=== PATIENT | male | born 1970 | race Two or more races ===

== ENCOUNTER 2024-04-14 00:37 | Inpatient (IN) | payer OTHER ==
[~2024-04-14] VITALS: Ht 172.7 cm; Wt 93.3 kg
[2024-04-14] VITALS (7 sets, daily range): BP systolic 99–111; BP diastolic 48–62; PULSE 59–142; RESP 14–19; TEMP 98–99; O2SAT 93–96
[2024-04-14 01:13] LABS: Basophils # (auto) 0 10 ^3/uL (0-0.2); Basophils % (auto) 0.6 % (0.0-2.0); Eosinophils # (auto) 0 10 ^3/uL (0-0.8); Eosinophils % (auto) 0.8 % (0.0-7.0); Hematocrit 41.9 % (41.0-53.0); Hemoglobin 14.2 g/dL (13.5-17.5); Lymphocytes # (auto) 0.7 10 ^3/uL (0.4-5.4); Lymphocytes % (auto) 13.7 % (10.0-50.0); Mean Corpuscular Hemoglobin 31.2 pg (28.0-32.0); Mean Corpuscular Hgb Conc. 33.8 g/dL (32.0-36.0); Mean Corpuscular Volume 92.1 fL (80.0-100.0); Monocytes # (auto) 0.1 10 ^3/uL (0-1.3); Monocytes % (auto) 1.7 % (0.0-12.0); Neutrophils # (auto) 4.4 10 ^3/uL (1.6-8.6); Neutrophils % (auto) 83.2 % (37.0-80.0); Nucleated Red Blood Cells % 0.1 %; Platelet Count (auto) 371 10^3/uL (140-450); Red Blood Cells 4.55 10^6/uL (4.5-5.90); White Blood Cell 5.2 10^3/uL (4.4-10.8)
--- NOTE | 2024-04-14 01:16 | ED.PDOC ---
SOB-HPI HPI Comments 53-year-old male who came to ER via EMS for shortness of breath. Patient does have history of diabetes and asthma. States 45 minutes prior to arrival patient developed sudden onset shortness of breath and wheezing. Patient was given albuterol inhalers but offered no relief. Then having fever, chills nausea and vomiting. Temperature on scene was 101.3 F and was saturating at 98% on room air. Chief Complaint: Shortness of Breath Time Seen by MD: 01:15 Reviewed notes: Nurses Notes Information Source: Patient, Emergency Med Personnel Mode of Arrival: EMS Severity: Moderate Timing: Hours Duration: Intermittent Context: At Rest, With Light Exertion History of: Asthma Prehospital treatment: Breathing Tx, Oxygen Modifying Factors: Nothing Associated Signs and Symptoms: Wheeze, Cough Quality: Tightness Location: Chest (R), Chest (L) If cough with SOB: Non-Productive Past Medical History PAST MEDICAL HISTORY: Asthma, DM, High Lipids Surgical History: Denies all surgeries Family History Family History: Reviewed,noncontributory to illness Social History Smoker: Non-Smoker Alcohol: Denies ETOH Use Drugs: Denies Drug Use Lives In: Home Constitutional: reports: chills, fever Respiratory: reports: cough, SOB at rest, shortness of breath, wheezing Gastrointestinal: reports: nausea Physical Exam General Appearance: No Apparent Distress, Normal HEENT: Normal ENT Inspection, Pharynx Normal, TMs Normal Neck: Full Range of Motion, Non-Tender, Normal, Normal Inspection Respiratory: Chest Non-Tender, No Accessory Muscle Use, Wheezing Cardiovascular: No Edema, No JVD, No Murmur, No Gallop, Normal Peripheral Pulses, Regular Rate/Rhythm Breast Exam: Deferred Gastrointestinal: No Organomegaly, Non Tender, No Pulsatile Mass, Normal Bowel Sounds, Soft Genitalia: Deferred Pelvic: Deferred Rectal: Deferred Extremities: No calf tenderness, Normal capillary refill, Normal inspection, Normal range of motion, Non-tender, No pedal edema Musculoskeletal : Apperance: Normal Neurologic: Alert, antique finisher II-XII nml as Tested, No Motor Deficits, Normal Affect, Normal Mood, No Sensory Deficits Cerebellar Function: Normal Reflexes: Normal Skin: Dry, Normal Color, Warm Lymphatic: No Adenopathy Was a procedure done? Was a procedure done?: No Differential Dx Differential Diagnosis: Asthma, Bronchitis, Pneumonia, Respiratory Distress, URI X-Ray, Labs, Meds, VS Vital Signs Date Time Temp Pulse Resp B/P (MAP) Pulse Ox O2 Delivery O2 Flow Rate FiO2 04/14/24 04:52 90 26 83/47 (59) 90 04/14/24 04:35 94 25 88/49 (62) 92 04/14/24 04:00 101 19 92/45 (61) 92 04/14/24 03:00 126 34 97/48 (64) 89 04/14/24 02:43 101.2 04/14/24 01:29 140 04/14/24 01:28 102.8 142 15 92/52 (65) 102.8 04/14/24 01:28 142 15 Nasal Cannula* 2 28 04/14/24 01:10 146 04/14/24 01:06 101.3 148 14 106/62 (77) 98 Lab Test 04/14/24 03:52 04/14/24 02:56 04/14/24 01:57 04/14/24 00:56 Range/Units Lactic Acid Level 2.7 *H 0.4-2.0 mmol/L Troponin I High Sensitivity 26 17 8 </=54 ng/L Influenza Type A Antigen Negative Negative Influenza Type B Antigen Negative Negative SARS-CoV-2 Antigen (Rapid) Negative NEGATIVE White Blood Count 5.2 4.4-10.8 10^3/uL Red Blood Count 4.55 4.5-5.90 10^6/uL Hemoglobin 14.2 13.5-17.5 g/dL Hematocrit 41.9 41.0-53.0 % Mean Corpuscular Volume 92.1 80.0-100.0 fL Mean Corpuscular Hemoglobin 31.2 28.0-32.0 pg Mean Corpuscular Hemoglobin Concent 33.8 32.0-36.0 g/dL Red Cell Distribution Width 15.0 H 11.8-14.3 % Platelet Count 371 140-450 10^3/uL Mean Platelet Volume 6.7 L 6.9-10.8 fL Neutrophils (%) (Auto) 83.2 H 37.0-80.0 % Lymphocytes (%) (Auto) 13.7 10.0-50.0 % Monocytes (%) (Auto) 1.7 0.0-12.0 % Eosinophils (%) (Auto) 0.8 0.0-7.0 % Basophils (%) (Auto) 0.6 0.0-2.0 % Neutrophils # (Auto) 4.4 1.6-8.6 10 ^3/uL Lymphocytes # (Auto) 0.7 0.4-5.4 10 ^3/uL Monocytes # (Auto) 0.1 0-1.3 10 ^3/uL Eosinophils # (Auto) 0 0-0.8 10 ^3/uL Basophils # (Auto) 0 0-0.2 10 ^3/uL Nucleated Red Blood Cells 0.1 % Sodium Level 143 136-145 mmol/L Potassium Level 4.3 3.5-5.1 mmol/L Chloride Level 108 H 98-107 mmol/L Carbon Dioxide Level 24 20-31 mmol/L Anion Gap 11 5-15 Blood Urea Nitrogen 18 9-23 mg/dL Creatinine 1.08 0.700-1.30 mg/dL Glomerular Filtration Rate Calc 81 >90 mL/min BUN/Creatinine Ratio 16.7 10.0-20.0 Serum Glucose 142 H 74-106 mg/dL Calcium Level 9.4 8.7-10.4 mg/dL Current Medications Medications (Trade) Dose Ordered Sig/Day Route Start Time Stop Time Status Last Admin Acetaminophen (Tylenol Tablet) 650 mg ONCE ONCE PO 04/14/24 01:00 04/14/24 01:01 DC 04/14/24 01:43 Sodium Chloride 1,000 ml @ 1,000 mls/hr Q1H ONCE IV 04/14/24 01:30 04/14/24 02:29 DC 04/14/24 01:42 Cefepime HCl 50 ml @ 12.5 mls/hr ONCE ONCE IV 04/14/24 01:30 04/14/24 05:29 04/14/24 01:48 Sodium Chloride 1,000 ml @ 1,000 mls/hr Q1H ONCE IV 04/14/24 03:15 04/14/24 04:14 DC 04/14/24 03:39 Sodium Chloride 1,000 ml @ 1,000 mls/hr Q1H ONCE IV 04/14/24 05:15 04/14/24 06:14 04/14/24 05:15 Time of 1ST Reevaluation: 01:12 Reevaluation 1ST: Unchanged Patient Education/Counseling: Diagnosis, Treatment Family Education/Counseling: No Family Present Departure 1 Departure Time of Disposition: 05:27 (Patient presented in septic shock. Received multiple fluid boluses and antibiotics. We will admit patient for further workup) Impression: Primary Impression: Septic shock Additional Impression: Shortness of breath Disposition: ADMITTED INPATIENT Admit to: [facility] Condition: Guarded Critical Care Note Critical Care Time?: Yes Critical care comment: Septic shock Authorized and Performed by: Adis Anthony MD Total critical care time: Approximately 98 minutes Due to a high probability of clinically significant, life threatening deterioration, the patient required my highest level of preparedness to intervene emergently and I personally spent this critical care time directly and personally managing the patient. This critical care time included obtaining a history; examining the patient; pulse oximetry; ordering and review of studies; arranging urgent treatment with development of a management plan; evaluation of patient's response to treatment; frequent reassessment; and, discussions with other providers. This critical care time was performed to assess and manage the high probability of imminent, life-threatening deterioration that could result in multi-organ failure. It was exclusive of separately billable procedures and treating other patients and teaching time. Please see my other sections and the rest of the note for further information on patient assessment and treatment. Stability Stability form required: No Heart Score Heart Score: Heart Score Response (Comments) Value History N/A 0 EKG N/A 0 Age N/A 0 Risk Factors N/A 0 Troponin N/A 0 Total 0 I personally scribed for ADIS ANTHONY MD ([email or web address]) on 04/14/24 at 01:16. Electronically submitted by Panfilo Snow ([email or web address]). ADIS ANTHONY MD Apr 14, 2024 01:16
[2024-04-14 01:21] LABS: Chloride 108 mmol/L (98-107); Potassium 4.3 mmol/L (3.5-5.1); Sodium 143 mmol/L (136-145)
[2024-04-14 01:22] LABS: Anion Gap 11 (5-15); Carbon Dioxide 24 mmol/L (20-31)
[2024-04-14 01:23] LABS: Calcium 9.4 mg/dL (8.7-10.4)
[2024-04-14 01:28] LABS: BUN/Creatinine Ratio 16.7 (10.0-20.0); Blood Urea Nitrogen 18 mg/dL (9-23); Glucose 142 mg/dL (74-106)
--- NOTE | 2024-04-14 01:35 | ECG ---
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
[2024-04-14] MEDS: SODIUM CHLORIDE 0.9% 1,000 ML IV ONE ×3 (01:42→05:15)
[2024-04-14] MEDS: ACETAMINOPHEN 325 MG TAB PO ONE (01:43)
[2024-04-14] MEDS: CEFEPIME 2GM/50ML NS 50 ML IV ONE (01:48)
[2024-04-14 04:13] LABS: COVID19 ANTIGEN SOFIA FIA NEGATIVE (NEGATIVE); Rapid Influenza A Negative (Negative); Rapid Influenza B Negative (Negative)
[2024-04-14 04:22] LABS: Lactic Acid w/Reflex 2.7 mmol/L (0.4-2.0)
--- NOTE | 2024-04-14 05:09 | DVH ---
Examination: CXRP Clinical Indication: Fever. Comparison: None. Technique: Frontal radiograph of the chest was obtained. Findings: Probable subsegmental atelectasis is seen in left lower lobe. Rest of the lungs are clear and well expanded with no pulmonary infiltrate or pleural effusion. There is no pneumothorax. The cardiomediastinal silhouette is within normal limits. No acute osseous abnormality is seen. Impression: Probable subsegmental atelectasis is seen in left lower lobe. Electronically Signed 04/14/2024 05:01 Annetta Gibbs
[2024-04-14] MEDS: NOREPINEPHRINE 8 MG/250ML KIT 250 ML IV SCH (06:28)
[2024-04-14 09:24] LABS: Urine Bacteria None Seen /hpf (None Seen)
[2024-04-14 09:31] LABS: Urine Blood Negative /uL (Negative); Urine Clarity Turbid (Clear); Urine Color Yellow (Yellow); Urine Hyaline Cast FEW /lpf (0 - 2); Urine Mucus FEW (None Seen); Urine Protein, UAD TRACE (Negative); Urine Specific Gravity 1.026 (1.001-1.035); Urine Urobilinogen Normal (Negative); Urine WBC 215 /hpf (0 - 3)
[2024-04-14] MEDS ORDERED: ONDANSETRON HCL 4 MG/2 ML VIAL IV PRN (09:45)
[2024-04-14] MEDS ORDERED: DEXTROSE (50%) 50ML SYRG IV PRN (09:45)
[2024-04-14] MEDS ORDERED: NITROGLYCERIN 0.4 MG SL TAB SL PRN (09:45)
[2024-04-14] MEDS ORDERED: DOCUSATE SOD 100 MG CAP PO PRN (09:45)
[2024-04-14] MEDS ORDERED: MORPHINE SULFATE INJ 2 MG/ml SYRG IV PRN (09:45)
[2024-04-14] MEDS ORDERED: ALBUTEROL SULF 2.5 MG/0.5ML(0.5%) NEB SOLN NEB PRN (10:00)
[2024-04-14] MEDS ORDERED: AZITHROMYCIN 500MG/ 250ML 250 ML IV ONE (10:00)
[2024-04-14] MEDS ORDERED: AZITHROMYCIN 500MG/ 250ML 250 ML IV SCH (10:00)
[2024-04-14] MEDS ORDERED: IPRATROPIUM BROM 0.5 MG/2.5ML INH SOL NEB PRN (10:00)
[2024-04-14] MEDS: PANTOPRAZOLE 40 MG/10 ML VIAL INJ IV SCH (10:00)
[2024-04-14] MEDS: IPRATROPIUM BROM 0.5 MG/2.5ML INH SOL ONE (10:08)
[2024-04-14] MEDS: ALBUTEROL SULF 2.5 MG/0.5ML(0.5%) NEB SOLN ONE (10:09)
--- NOTE | 2024-04-14 10:09 | DVHHP2 ---
History of Present Illness Reason for Visit: sob and fever History of Present Illness 53 yr old male pmh dm, asthma, hld, pna, bladder issues no surgical history cc here for sob with ever tmax 101.3, per pt and wif pt had some chills and not able to cath hi breath, which got worse at midnight, pt states was in bed sleep and he woke up with some symptoms, he denies any chest pain with his symptoms no sob. 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 pt does states prior to arrival he took his inhalers but no relief from his sob. no cough, no phelgm. no weakness. when evaluting pt labs and imaging pt found to be on levophed drip d/t sepsis, lactic was 2.7, trop x3 negative, bmp unremarkable, glucose 142, influenza and covid negative, pt has ua with some lueks and bacteria, cxr left lower lobe shows altelecatsis. with these findings will admit pt for acute sepsis and iv antibiotics Past Medical History dm, asthma, hld, pna, bladder issues Past Surgical History denies any surgical history Family History reviewed non contributory Lives: with Family Past Social History pt denies drinking smoking or drug use Review of Systems Constitutional: No: Fever, Chills, Sweats, Weakness, Malaise, Other Eyes: No: Pain, Vision change, Conjunctivae inflammation, Eyelid inflammation, Other, Redness ENT: No: Ear pain, Ear discharge, Nose pain, Nose discharge, Nose congestion, Mouth pain, Mouth swelling, Throat pain, Throat swelling, Other Respiratory: Shortness of breath, SOB with excertion; No: Cough, Dry, Wheezing, Hemoptysis, Pleuritic Pain, Sputum, Wheezing, Other Cardiovascular: No: Chest Pain, Palpitations, Orthopnea, Paroxysmal Noc. Dyspnea, Edema, Lt Headedness, Other Gastrointestinal: No: Nausea, Vomiting, Abdominal Pain, Diarrhea, Constipation, Melena, Hematochezia, Other Genitourinary: No Dysuria, No Frequency, No Incontinence, No Hematuria, No Retention, No Other Musculoskeletal: No: other, neck pain, shoulder pain, arm pain, back pain, hand pain, leg pain, foot pain Skin: No: Rash, Lesions, Jaundice, Bruising, Other Neurological: No: Weakness, Numbness, Incoordination, Change in speech, Confusion, Seizures, Other Allergies: Coded Allergies: No Known Drug Allergy (Verified Allergy, Unknown, 04/14/24) Medications Current Medications Medications Dose Ordered Sig/Day Route Start Time Stop Time Status Last Admin Dose Admin Norepinephrine Bitartrate 250 ml @ 3.75 mls/hr Q24H IV 04/14/24 06:15 04/14/24 06:28 3.75 MLS/HR Exam Vital Signs Vital Signs Date Time Temp Pulse Resp B/P (MAP) Pulse Ox O2 Delivery O2 Flow Rate FiO2 04/14/24 08:54 99/48 04/14/24 07:30 98.9 78 14 96 98.9 04/14/24 07:30 Nasal Cannula* 2 28 General Appearance: Alert, Oriented X3, Cooperative, No acute distress HEENT: Atraumatic, PERRLA, EOMI, Mucous membr. moist/pink Respiratory: Other (diminished throughout ) Cardiovascular: Regular rate, Normal S1, Normal S2, No murmurs Abdominal: Normal bowel sounds, Soft, No tenderness, No hepatospenomegaly, No masses Extremities: No clubbing, No cyanosis, No edema, Normal pulses, No tenderness/swelling Skin: No rashes, No breakdown, No significant lesion Neuro: Normal gait, Normal speech, Strength at 5/5 X4 ext, Normal tone, Sensation intact, Cranial nerves 3-12 NL Psych/Mental Status: Mental status NL, Mood NL Labs/Xrays cxr left lower lobe atelecasisi i reviewed labs and imaging and ct scan reports on chart from ed records Labs Test 04/14/24 09:15 04/14/24 05:46 04/14/24 03:52 04/14/24 02:56 Range/Units Urine Color Yellow Yellow Urine Clarity Turbid H Clear Urine pH 6.0 5.0-9.0 Urine Specific [place] 1.026 1.001-1.035 Urine Protein Trace H Negative Urine Ketones Negative Negative Urine Blood Negative Negative /uL Urine Nitrite Negative Negative Urine Bilirubin Negative Negative Urine Urobilinogen Normal Negative mg/dL Urine Leukocyte Esterase 3+ Negative /uL Urine RBC 4 0 - 3 /hpf Urine WBC 215 0 - 3 /hpf Urine Squamous Epithelial Cells Few <5 /hpf Urine Bacteria None seen None Seen /hpf Urine Hyaline Casts Few 0 - 2 /lpf Urine Mucus Few None Seen Urine Glucose Normal Normal mg/dL Lactic Acid Level 2.1 H 0.4-2.0 mmol/L Troponin I High Sensitivity 26 </=54 ng/L Influenza Type A Antigen Negative Negative Influenza Type B Antigen Negative Negative SARS-CoV-2 Antigen (Rapid) Negative NEGATIVE Test 04/14/24 00:56 Range/Units White Blood Count 5.2 4.4-10.8 10^3/uL Red Blood Count 4.55 4.5-5.90 10^6/uL Hemoglobin 14.2 13.5-17.5 g/dL Hematocrit 41.9 41.0-53.0 % Mean Corpuscular Volume 92.1 80.0-100.0 fL Mean Corpuscular Hemoglobin 31.2 28.0-32.0 pg Mean Corpuscular Hemoglobin Concent 33.8 32.0-36.0 g/dL Red Cell Distribution Width 15.0 H 11.8-14.3 % Platelet Count 371 140-450 10^3/uL Mean Platelet Volume 6.7 L 6.9-10.8 fL Neutrophils (%) (Auto) 83.2 H 37.0-80.0 % Lymphocytes (%) (Auto) 13.7 10.0-50.0 % Monocytes (%) (Auto) 1.7 0.0-12.0 % Eosinophils (%) (Auto) 0.8 0.0-7.0 % Basophils (%) (Auto) 0.6 0.0-2.0 % Neutrophils # (Auto) 4.4 1.6-8.6 10 ^3/uL Lymphocytes # (Auto) 0.7 0.4-5.4 10 ^3/uL Monocytes # (Auto) 0.1 0-1.3 10 ^3/uL Eosinophils # (Auto) 0 0-0.8 10 ^3/uL Basophils # (Auto) 0 0-0.2 10 ^3/uL Nucleated Red Blood Cells 0.1 % Sodium Level 143 136-145 mmol/L Potassium Level 4.3 3.5-5.1 mmol/L Chloride Level 108 H 98-107 mmol/L Carbon Dioxide Level 24 20-31 mmol/L Anion Gap 11 5-15 Blood Urea Nitrogen 18 9-23 mg/dL Creatinine 1.08 0.700-1.30 mg/dL Glomerular Filtration Rate Calc 81 >90 mL/min BUN/Creatinine Ratio 16.7 10.0-20.0 Serum Glucose 142 H 74-106 mg/dL Calcium Level 9.4 8.7-10.4 mg/dL Assessment/Plan Assessment/Plan acute sepsis likely lung (pt with fever tmax 101.3) vs urine cxr with left lower lobe atelectasis covid and influenza negative ordered ceftriaxone and zithromax for now ordered urine fu results ordered lactic fu results ordered blood culture fu results ordered levophed to keep blood map >65 ordered incentive spirometer acute hypoxic resp failure pt has hx of asthma ordered solumedrol ordered albuterol/atrovent prn sob ordered ddimer fu results ordered lovenox for now o2 to keep sats >92% acute asthma exacerbation ordered albuterol/atrovent ordered solumedrol for now ordered protonix while on steriods acute cystitis ua found with leuks and bacteria ordered urine culture fu results ordered ceftriaxone for now uncontrolled type 2 dm ordered accucheck ac/hs with sliding scale chronic hld cont home medication chronic bladder issues cont home medication fen/ppx diet ivf protonix while on steriods scd plan admit to tele for now iv antibotics and iv hydration Plan discussed with: Patient, Spouse Date of Service: Apr 14, 2024 Billing Provider: PEPPER QUINTANA DNP Common Visit Codes: 93290-GKQCLOT INP/OBS CARE (HIGH) PEPPER QUINTANA DNP Apr 14, 2024 10:09
[2024-04-14] MEDS: SODIUM CHLORIDE 0.9% 1,000 ML IV SCH (10:27)
[2024-04-14] MEDS: PANTOPRAZOLE 40 MG/10 ML VIAL INJ IV ONE (10:28)
[2024-04-14] MEDS: methylPREDNISolone SOD SUCC 40 MG/ML VL IV SCH (10:28)
[2024-04-14] MEDS: cefTRIAXone 1GM/50ML D5W 50 ML IV ONE (10:31)
[2024-04-14] MEDS: IPRATROPIUM BROM 0.5 MG/2.5ML INH SOL NEB ONE (10:35)
[2024-04-14] MEDS: ALBUTEROL SULF 2.5 MG/0.5ML(0.5%) NEB SOLN NEB ONE (10:35)
[2024-04-14 10:38] LABS: Lactic Acid w/Reflex 2.1 mmol/L (0.4-2.0)
[2024-04-14 10:47] LABS: INR 1.11 (0.9-1.15); Prothrombin Time 11.7 sec (9.3-11.8)
[2024-04-14] MEDS: ACCU-CHEK COMFORT CURVE STRIP VI SCH (11:30)
[2024-04-14] MEDS: DOXYCYCLINE 100MG/250ML 250 ML IV ONE (11:58)
[2024-04-14] MEDS: InsuLIN REG 1unit/0.01ml Soln (100units/ml) SC SCH (12:12)
[2024-04-14] MEDS ORDERED: CHOL20007 OR (16:50)
[2024-04-14] MEDS ORDERED: LORA-622 PO (16:50)
[2024-04-14] MEDS ORDERED: ZINC50TA7 PO (16:50)
[2024-04-14] MEDS ORDERED: METF750T54 PO (16:50)
[2024-04-14] MEDS ORDERED: SIMV40TA18 PO (16:51)
[2024-04-14] MEDS ORDERED: ALBUAER3 IN (16:51)
[2024-04-14] MEDS ORDERED: FLUT1SPR5 (16:52)
[2024-04-14] MEDS ORDERED: MONT-8 PO (16:54)
[2024-04-14] MEDS ORDERED: NAP500T PO (16:55)
[2024-04-14] MEDS ORDERED: SEMA2INJ3 SC (16:56)
[2024-04-14] MEDS ORDERED: TAMS0.4C39 PO (16:57)
[2024-04-14] MEDS: DOXYCYCLINE 100MG/250ML 250 ML IV SCH (21:51)
[2024-04-14] MEDS: ENOXAPARIN SOD 100 MG/1 ML SYRINGE SC SCH (21:52)
[2024-04-15] VITALS (9 sets, daily range): BP systolic 107–120; BP diastolic 52–67; PULSE 51–65; RESP 17–21; TEMP 97.3–98.9; O2SAT 92–98
[2024-04-15 07:17] LABS: Basophils # (auto) 0 10 ^3/uL (0-0.2); Basophils % (auto) 0.2 % (0.0-2.0); Eosinophils # (auto) 0 10 ^3/uL (0-0.8); Hematocrit 38.7 % (41.0-53.0); Hemoglobin 12.7 g/dL (13.5-17.5); Lymphocytes # (auto) 1.2 10 ^3/uL (0.4-5.4); Lymphocytes % (auto) 8.8 % (10.0-50.0); Mean Corpuscular Hemoglobin 30.4 pg (28.0-32.0); Mean Corpuscular Hgb Conc. 32.9 g/dL (32.0-36.0); Mean Corpuscular Volume 92.5 fL (80.0-100.0); Monocytes # (auto) 0.7 10 ^3/uL (0-1.3); Monocytes % (auto) 5.3 % (0.0-12.0); Neutrophils % (auto) 85.7 % (37.0-80.0); Platelet Count (auto) 304 10^3/uL (140-450); Red Blood Cells 4.18 10^6/uL (4.5-5.90); Red Cell Distribution Width 15.1 % (11.8-14.3)
[2024-04-15 07:34] LABS: Alanine Aminotransferase 22 U/L (7-40); Albumin 4.1 g/dL (3.2-4.8); Alkaline Phosphatase 73 U/L (46-116); Anion Gap 7 (5-15); Aspartate Aminotransferase 12 U/L (13-40); BUN/Creatinine Ratio 16.9 (10.0-20.0); Bilirubin, Total 0.6 mg/dL (0.2-1.0); Blood Urea Nitrogen 12 mg/dL (9-23); Calcium 9.1 mg/dL (8.7-10.4); Carbon Dioxide 24 mmol/L (20-31); Chloride 110 mmol/L (98-107); Glucose 138 mg/dL (74-106); Potassium 4.2 mmol/L (3.5-5.1); Sodium 141 mmol/L (136-145); Total Protein 6.3 g/dL (5.7-8.2)
--- NOTE | 2024-04-15 09:15 | DVH ---
INDICATION: Eval for pe elvated ddimer and sob TECHNIQUE: Multidetector CTA of the chest was performed of the chest with 100 cc of intravenous contr ast. PULMONARY ANGIOGRAPHY PROTOCOL was utilized using a bolus-tracking technique centered on the jose maria n pulmonary artery. Coronal and sagittal multiplanar and MIP reformats were performed. Radiation Dose Information: CT Dose: CTDI volume is 26.61 mGy. Dose-length product is 858.46 mGy*cm The dose indicators for CT are the volume Computed Tomography (CT) Dose Index (CTDIvol) and the Dose Length Product (DLP), and are measured in units of mGy and mGy-cm, respectively. These indicators are not patient dose, but values generated from the CT scanner acquisition factors. The report includes radiation exposure data for exposures received during this examination. Comparison: Chest radiograph dated 04/14/2024 Findings: Pulmonary artery: Normal caliber of the pulmonary artery. No main, lobar or segmental pulmonary em bolism. Lower neck: Normal thyroid. Lungs: Bilateral lower lobe subsegmental atelectasis. No focal consolidation, pulmonary mass, or susp icious pulmonary nodule. Heart/Vascular Structures: Normal heart size. No coronary artery disease. Normal caliber and enhancem ent of the aorta. Lymph Nodes: No adenopathy Pleura: No pleural effusion or significant pneumothorax. Musculoskeletal: No acute osseous abnormality. Upper abdomen: Limited portions of the upper abdomen demonstrates 1.5 cm low attenuating lesion in th e right hepatic lobe. IMPRESSION: 1. No pulmonary embolism. 2. No acute intrathoracic abnormality.
[2024-04-15] MEDS: cefTRIAXone 1GM/50ML D5W 50 ML IV SCH (09:34)
[2024-04-16] VITALS (9 sets, daily range): BP systolic 109–134; BP diastolic 69–74; PULSE 55–83; RESP 18–20; TEMP 97.6–98.9; O2SAT 94–98
[2024-04-16] MEDS: IOHEXOL 350 MG/ML 100ML IJ ONE (08:29)
[2024-04-16 11:38] LABS: Basophils # (auto) 0 10 ^3/uL (0-0.2); Basophils % (auto) 0.2 % (0.0-2.0); Eosinophils # (auto) 0 10 ^3/uL (0-0.8); Hematocrit 41.4 % (41.0-53.0); Hemoglobin 13.8 g/dL (13.5-17.5); Lymphocytes # (auto) 1.6 10 ^3/uL (0.4-5.4); Lymphocytes % (auto) 9.4 % (10.0-50.0); Mean Corpuscular Hemoglobin 30.8 pg (28.0-32.0); Mean Corpuscular Hgb Conc. 33.4 g/dL (32.0-36.0); Mean Corpuscular Volume 92.4 fL (80.0-100.0); Monocytes # (auto) 0.5 10 ^3/uL (0-1.3); Neutrophils # (auto) 14.6 10 ^3/uL (1.6-8.6); Neutrophils % (auto) 87.4 % (37.0-80.0); Nucleated Red Blood Cells % 0.1 %; Platelet Count (auto) 359 10^3/uL (140-450); Red Blood Cells 4.48 10^6/uL (4.5-5.90); Red Cell Distribution Width 14.9 % (11.8-14.3); White Blood Cell 16.7 10^3/uL (4.4-10.8)
[2024-04-16] MEDS ORDERED: DOXY-286 PO (13:13)
--- NOTE | 2024-04-16 13:22 | DVHDS2 ---
Discharge Summary Date of Admission Apr 14, 2024 at 09:38 Date of Discharge: Apr 16, 2024 Admitting Diagnosis Sepsis Labs/Diagnostic Data: Laboratory Results Test 04/16/24 11:00 04/16/24 05:58 04/15/24 06:16 04/14/24 13:47 White Blood Count 16.7 10^3/uL (4.4-10.8) Red Blood Count 4.48 10^6/uL (4.5-5.90) Hemoglobin 13.8 g/dL (13.5-17.5) Hematocrit 41.4 % (41.0-53.0) Mean Corpuscular Volume 92.4 fL (80.0-100.0) Mean Corpuscular Hemoglobin 30.8 pg (28.0-32.0) Mean Corpuscular Hemoglobin Concent 33.4 g/dL (32.0-36.0) Red Cell Distribution Width 14.9 % (11.8-14.3) Platelet Count 359 10^3/uL (140-450) Mean Platelet Volume 7.4 fL (6.9-10.8) Neutrophils (%) (Auto) 87.4 % (37.0-80.0) Lymphocytes (%) (Auto) 9.4 % (10.0-50.0) Monocytes (%) (Auto) 3.0 % (0.0-12.0) Eosinophils (%) (Auto) 0.0 % (0.0-7.0) Basophils (%) (Auto) 0.2 % (0.0-2.0) Neutrophils # (Auto) 14.6 10 ^3/uL (1.6-8.6) Lymphocytes # (Auto) 1.6 10 ^3/uL (0.4-5.4) Monocytes # (Auto) 0.5 10 ^3/uL (0-1.3) Eosinophils # (Auto) 0 10 ^3/uL (0-0.8) Basophils # (Auto) 0 10 ^3/uL (0-0.2) Nucleated Red Blood Cells 0.1 % POC Glucose 140 mg/dl (70-106) Sodium Level 141 mmol/L (136-145) Potassium Level 4.2 mmol/L (3.5-5.1) Chloride Level 110 mmol/L (98-107) Carbon Dioxide Level 24 mmol/L (20-31) Anion Gap 7 (5-15) Blood Urea Nitrogen 12 mg/dL (9-23) Creatinine 0.71 mg/dL (0.700-1.30) Glomerular Filtration Rate Calc 108 mL/min (>90) BUN/Creatinine Ratio 16.9 (10.0-20.0) Serum Glucose 138 mg/dL (74-106) Calcium Level 9.1 mg/dL (8.7-10.4) Total Bilirubin 0.6 mg/dL (0.2-1.0) Aspartate Amino Transferase (AST) 12 U/L (13-40) Alanine Aminotransferase (ALT) 22 U/L (7-40) Alkaline Phosphatase 73 U/L (46-116) Total Protein 6.3 g/dL (5.7-8.2) Albumin 4.1 g/dL (3.2-4.8) Lactic Acid Level 2.0 mmol/L (0.4-2.0) Test 04/14/24 10:07 04/14/24 09:15 04/14/24 03:52 04/14/24 02:56 Prothrombin Time 11.7 sec (9.3-11.8) Prothrombin Time INR 1.11 (0.9-1.15) D-Dimer, Quantitative 2.07 mg/L FEU (0.0-0.49) Urine Color Yellow (Yellow) Urine Clarity Turbid (Clear) Urine pH 6.0 (5.0-9.0) Urine Specific [place] 1.026 (1.001-1.035) Urine Protein Trace (Negative) Urine Ketones Negative (Negative) Urine Blood Negative /uL (Negative) Urine Nitrite Negative (Negative) Urine Bilirubin Negative (Negative) Urine Urobilinogen Normal mg/dL (Negative) Urine Leukocyte Esterase 3+ /uL (Negative) Urine RBC 4 /hpf (0 - 3) Urine WBC 215 /hpf (0 - 3) Urine Squamous Epithelial Cells Few /hpf (<5) Urine Bacteria None seen /hpf (None Seen) Urine Hyaline Casts Few /lpf (0 - 2) Urine Mucus Few (None Seen) Urine Glucose Normal mg/dL (Normal) Troponin I High Sensitivity 26 ng/L (</=54) Influenza Type A Antigen Negative (Negative) Influenza Type B Antigen Negative (Negative) SARS-CoV-2 Antigen (Rapid) Negative (NEGATIVE) Other Laboratory Tests 04/16/24 11:00 04/15/24 06:16 Brief Hx & Hospital Course: History of Present Illness 53 yr old male pmh dm, asthma, hld, pna, bladder issues no surgical history cc here for sob with ever tmax 101.3, per pt and wif pt had some chills and not able to cath hi breath, which got worse at midnight, pt states was in bed sleep and he woke up with some symptoms, he denies any chest pain with his symptoms no sob. 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 pt does states prior to arrival he took his inhalers but no relief from his sob. no cough, no phelgm. no weakness. when evaluting pt labs and imaging pt found to be on levophed drip d/t sepsis, lactic was 2.7, trop x3 negative, bmp unremarkable, glucose 142, influenza and covid negative, pt has ua with some lueks and bacteria, cxr left lower lobe shows altelecatsis. with these findings will admit pt for acute sepsis and iv antibiotics. Course of hospitalization: Patient was immediately titrated off of norepinephrine while in the emergency room. Patient was started on antibiotic therapy with Rocephin and doxycycline. The patient's rigors, fever, dyspnea have all resolved. The patient states that he has been asymptomatic for over 24 hours. Patient was started on IV Solu- Medrol, which can be attributed to the patient's leukocytosis. CT angiogram of the chest was negative for any acute lung pathology as well as embolism. I myself, ambulate with the patient approximately 40 ft without any noted tachycardia, dizziness, or shortness of breath. The patient was agreeable to be discharged home. He will be continued on oral antibiotic therapy with doxycycline 100 mg p.o. twice a day for possible bronchial pneumonia. He states he has an appointment with his PCP this with Dr. Lancaster. The patient will continue with all previous home medications. Physical examination General: Alert and Oriented x3. No acute distress. Well-nourished. Eyes: EOMI. Anicteric. HENT: Moist mucous membranes. Lungs: Clear to auscultation bilaterally. No accessory muscle use. Cardiovascular: Regular rate and rhythm. No murmur. No JVD. Abdomen: Soft, non-tender and non-distended. No palpable masses. Extremities: No edema. Non-tender. Skin: No rashes or lesions. Warm. Neurologic: No focal neurological deficits. CN II-XII grossly intact, but not individually tested. Psychiatric: Cooperative. Appropriate mood and affect. Total time spent with patient discussing and formulating plan of care: 35 minutes. This medical document was created using an electronic medical record system with [employer] dictation system. Although this document has been carefully reviewed, there may still be some phonetic and typographical errors. These areas are purely typographical due to imperfections of the software programs, and do not reflect any compromise in the patient's medical care. Condition at Discharge: Fair Final Diagnosis/Problems List Sepsis with shock, probably viral etiology Secondary Diagnosis: Diabetes mellitus Primary hypertension Asthma Dyslipidemia Discharge Disposition: Home Discharge Instruct/Medications Diet: Consistent carbohydrate Activity: No Restrictions, As Tolerated Follow Up/Referral: Follow up with PCP at established appointment this Medications: Doxycycline 100 mg p.o. twice a day x7 days Continue all previous home medications 36 Discharge Statement: "Patient was advised to return to the ER or call 911 if any headaches, dizziness, shortness of breath, chest pain, abdominal pain, bleeding, fevers, or worsening of medical condition. Patient was counseled about treatment plan, medications, possible side effects, patientverbalized understanding. All questions were answered to the best of my ability. This discharge took greater then 30 minutes in planning, reviewing documentation, counseling the patient, and discussing with other team members." ASSESSMENT ASSESSMENT Assessment Sepsis with shock, probably viral etiology Date of Service: Apr 16, 2024 Billing Provider: MARCE CURRAN NP Common Visit Codes: 53354-YLE/OBS DISCH DAY >30min MARCE CURRAN NP Apr 16, 2024 13:21
--- NOTE | 2024-04-16 16:01 | ECG ---
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
[2024-04-17] MEDS ORDERED: methylPREDNISolone SOD SUCC 40 MG/ML VL IV SCH (10:00)
== END 2024-04-16 15:46 | disposition home or self-care (01) | DRG 871 ==
LOC: ER 00:37 → EDBD 00:37 → TELE 09:38 → TELE-EAST 15:17
PROVIDERS: ADMIT Nurse Practitioner Family; ATTEND Nurse Practitioner Acute Care
DX: A41.89 Other specified sepsis (principal); J96.01 Acute respiratory failure with hypoxia; R65.21 Severe sepsis with septic shock; J45.901 Unspecified asthma with (acute) exacerbation; N30.00 Acute cystitis without hematuria; Z20.822 Contact with and (suspected) exposure to COVID-19; E11.65 Type 2 diabetes mellitus with hyperglycemia; E78.5 Hyperlipidemia, unspecified
CPT/HCPCS: 36415; 71045; 71275; 80048; 80053; 81001; 82962; 83605; 84484; 85025; 85379; 85610; 87040; 87086; 87088; 87426; 87804; 93005; 94640; 99291; 99292; G0378; J0692; J1815; J2470; J3490